=== PATIENT | male | born 1980 | race Caucasian/White ===

== ENCOUNTER 2017-04-09 12:41 | Day surgery (SDC) | payer OTHER ==
[2017-04-09] MEDS ORDERED: LACTATED RINGERS 1,000 ML IV ONE ×2 (13:05→14:26)
[2017-04-09] MEDS ORDERED: fentaNYL 100 MCG/2 ML VIAL IVP ONE (14:00)
[2017-04-09] MEDS ORDERED: MIDAZOLAM 2 MG/2 ML VIAL IVP ONE (14:00)
[2017-04-09 17:53] VITALS: BP 101/58
== END 2017-04-09 12:42 | disposition home or self-care (01) ==
LOC: SDS 12:41
PROVIDERS: ATTEND Internal Medicine
PROC: 0DBE8ZX Excision of Large Intestine, Via Natural or Artificial Opening Endoscopic, Diagnostic (ICD-10-PCS; principal; 2017-04-09 13:30)
DX: K62.5 Hemorrhage of anus and rectum (principal); L53.8 Other specified erythematous conditions; F41.9 Anxiety disorder, unspecified
CPT/HCPCS: 45380; 88305; J7120

== ENCOUNTER 2017-08-19 16:19 | Outpatient (CLI) | payer OTHER ==
--- NOTE | 2017-08-20 09:39 | MRI Report ---
EXAM: MRI LUMBAR SPINE WITHOUT CONTRAST EXAM DATE: 08/19/2017 04:59 PM. CLINICAL HISTORY: Chronic low back pain. Numbness, tingling and burning sensation radiates to bilater al lower extremities. COMPARISON: 12/22/2010. TECHNIQUE: Multiplanar, multisequence T1-weighted and fluid-sensitive sequences of the lumbar spine f rom T12 to S1 without contrast. Other: None. FINDINGS: Spinal Cord: The conus terminates at L1-L2. The conus medullaris and cauda equina are unremarkable. Alignment: No change of alignment. Slight L4 and L5 retrolisthesis. 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 Bone Marrow: Five otp-[id number]-[id number] lumbar vertebral bodies are assumed. The numbering scheme in this r eport is arbitrary. There may be transitional anatomic segmentation at the lumbosacral junction. The potentially transitional vertebra for this report is defined as S1. Minimal reactive marrow edema at the upper posterior corner of the S1 vertebral body. Disk Levels/Facets: T12-L1: Unremarkable. L1-L2: There is now mild disk space dehydration and narrowing. Mild marginal spurring anteriorly. Min imal annular bulge but no developing stenosis. L2-L3: Unremarkable. L3-L4: Unremarkable. L4-L5: Mild degenerative disk disease. Shallow posterior disk bulge with annular fissure is similar t o findings on the prior exam. Moderately prominent facet arthropathy. No significant or progressive s tenosis. L5-S1: Mildly more prominent degenerative disk space dehydration and narrowing especially posteriorly where there is a shallow posterior disk protrusion with annular fissure similar to prior. No additio nal thecal sac indentation. The central canal and lateral recesses remain patent. No evidence for pro gressive foraminal narrowing which is minimal to mild left greater than right. Musculature: No acute edema or asymmetric fatty atrophy. Other: The partially visualized retroperitoneum is unremarkable. IMPRESSION: 1. Progressive degenerative disk disease but no significant stenosis at L1-L2. 2. Degenerative disk disease and facet arthropathy without significant stenosis at L4-L5. 3. Degenerative disk disease and facet arthropathy without progressive stenosis at L5-S1. 4. Minimal L5 on S1 spondylolisthesis, chronic bilateral L5 pars defects. 5. Posterior annular fissures with disk protrusions at L4-L5 and L5-S1. 6. Arbitrary numbering scheme as detailed above. Comment: The following findings are so common in adults without low back pain that while we report th eir presence, they must be interpreted with caution and in the context of the clinical situation. (Re antonia Castillo et al, Spine 2001) Prevalence of findings in patients without low back pain: Disk degeneration (any evidence): 92% Disk desiccation/T2 signal loss: 83% Disk height loss: 56% Disk bulge: 64% Disk protrusion: 32% Annular tear/high intensity zone: 38% [facility] Referring Provider Line: [phone] SITE ID: [id number]
== END 2017-08-19 16:20 | disposition home or self-care (01) ==
LOC: DI 16:19
PROVIDERS: ATTEND Physician Assistant Medical
DX: M54.5 Low back pain (principal); M51.36 Other intervertebral disc degeneration, lumbar region; M51.37 Other intervertebral disc degeneration, lumbosacral region
CPT/HCPCS: 72148

== ENCOUNTER 2018-06-18 08:00 | Outpatient (CLI) | payer OTHER | END 2018-06-18 23:59 | disposition home or self-care (01) | LOC: LAB.R 08:00 | PROVIDERS: ATTEND Physician Assistant Medical | DX: Z79.891 Long term (current) use of opiate analgesic (principal) | CPT/HCPCS: 80307; 80361; 80365; 81599 ==

== ENCOUNTER 2019-09-29 08:00 | Outpatient (CLI) | payer OTHER | END 2019-09-29 23:59 | disposition home or self-care (01) | LOC: LAB.R 08:00 | PROVIDERS: ATTEND Physician Assistant Medical | DX: Z79.891 Long term (current) use of opiate analgesic (principal) | CPT/HCPCS: 80361; 80365; 81599 ==

== ENCOUNTER 2020-08-05 13:51 | Outpatient (CLI) | payer OTHER | END 2020-08-05 13:52 | disposition EMS.NT | LOC: EMS 13:51 | PROVIDERS: ATTEND Surgery | DX: S61.512A Laceration without foreign body of left wrist, initial encounter (principal); W27.8XXA Contact with other nonpowered hand tool, initial encounter; Y93.H2 Activity, gardening and landscaping; Y92.007 Garden or yard of unspecified non-institutional (private) residence as the place of occurrence of the external cause ==

== ENCOUNTER 2020-09-05 08:00 | Outpatient (CLI) | payer OTHER ==
[2020-09-05 17:53] LABS: BASOPHILS % (AUTO) 0.4 %; EOSINOPHILS # (AUTO) 0.2 10^3/uL (0.0-0.7); EOSINOPHILS % (AUTO) 2.4 %; HGB - HEMOGLOBIN 14.5 g/dL (14.0-18.0); LYMPHOCYTES % (AUTO) 42.2 %; MEAN CORPUSCULAR HEMOGLOBIN 30.8 pg (27.0-31.0); MEAN CORPUSCULAR HGB CONC 32.8 g/dL (32.0-36.0); MEAN CORPUSCULAR VOLUME 93.8 fL (80.0-94.0); MEAN PLATELET VOLUME 11.8 fL (7.4-11.4); MONOCYTES # (AUTO) 0.4 10^3/uL (0.0-1.0); MONOCYTES % (AUTO) 6.1 %; NEUTROPHILS # (AUTO) 3.5 10^3/uL (1.5-6.6); NEUTROPHILS % (AUTO) 48.6 %; PLT - PLATELET COUNT 192 10^3/uL (130-450); RED BLOOD COUNT 4.71 10^6/uL (4.70-6.10); RED CELL DISTRIBUTION WIDTH 12.7 % (12.0-15.0); WHITE BLOOD COUNT 7.2 x10^3/uL (4.8-10.8)
[2020-09-05 18:15] LABS: ALBUMIN 4.6 g/dL (3.2-5.5); ALBUMIN/GLOBULIN RATIO 1.6 (1.0-2.2); ALKALINE PHOSPHATASE 47 IU/L (42-121); ALT ALANINE AMINOTRANSFERASE 12 IU/L (10-60); AST ASPARTATE AMINOTRANSFERASE 18 IU/L (10-42); BILIRUBIN,TOTAL 0.6 mg/dL (0.2-1.0); BUN - BLOOD UREA NITROGEN 10 mg/dL (6-20); CALCIUM 9.4 mg/dL (8.5-10.3); CARBON DIOXIDE - CO2 26 mmol/L (21-32); CHLORIDE 101 mmol/L (101-111); CHOL/HDL RATIO 6.1 (<5.0); CHOLESTEROL 258 mg/dL; GLUCOSE 95 mg/dL (70-100); HDL CHOLESTEROL 42 mg/dL; LDL CHOLESTEROL,CALCULATED 196 mg/dL; LDL/HDL RATIO 4.7 (<3.6); TOTAL PROTEIN 7.5 g/dL (6.7-8.2); VLDL CHOLESTEROL 20 mg/dL
== END 2020-09-05 23:59 | disposition home or self-care (01) ==
LOC: LAB.WCP 08:00
PROVIDERS: ATTEND Physician Assistant Medical
DX: Z00.00 Encounter for general adult medical examination without abnormal findings (principal); E05.90 Thyrotoxicosis, unspecified without thyrotoxic crisis or storm
CPT/HCPCS: 36415; 80053; 80061; 83721; 84443; 85025